=== PATIENT | female | born 1975 | race Caucasian/White ===

== ENCOUNTER 2016-10-01 21:28 | Emergency (ER) | payer MEDICARE, OTHER ==
[~2016-10-01] VITALS: Ht 170.2 cm; Wt 43.2 kg
[~2016-10-01 21:28] MED LIST: BACL10TA PO; CIPR500T4 PO; DIAZ10TA4 PO; FLUO20CA38 PO; LEVO200T6 PO; PHEN-537 PO; PHEN100C PO; TOPI100T42 PO
[2016-10-01 22:23] VITALS: Ht 170.2 cm; Wt 43.2 kg
--- NOTE | 2016-10-02 00:30 | ERD ---
ER Documentation Chief Complaint Date/Time DATE: 10/02/16 TIME: 00:29 Chief Complaint BILATERAL BACK PAIN,BUMP ON BACK OF LEFT LEG, ANKLE PAIN PT DENIES FALLING. HPI This is a 5-year-old female presents to the emergency room for evaluation of alcohol intoxication. The patient states that she was out with some friends and stated that she wanted to get dropped off in the emergency room because she did not want to be around a specific person. She denies any homicidal or suicidal ideation. Patient did state that she had back pain on arrival however she is denying any back pain or any pain at this time to me ROS All systems reviewed and are negative except as per history of present illness. Medications Home Meds Active Scripts Phenazopyridine Hcl* (Pyridium*) 100 Mg Tab, 100 MG PO TID Y for DYSURIA, #8 TAB Prov:RAFAEL CANTRELL DO 09/06/15 Ciprofloxacin Hcl* (Ciprofloxacin Hcl*) 500 Mg Tablet, 500 MG PO BID for 3 Days , TAB Prov:RAFAEL CANTRELL DO 09/06/15 Reported Medications Fluoxetine Hcl* (Prozac*) 20 Mg Capsule, 60 MG PO DAILY, CAP 11/12/14 Topiramate* (Topamax*) 100 Mg Tablet, 100 MG PO BID, TAB 11/12/14 Levothyroxine Sodium* (Levothyroxine Sodium*) 200 Mcg Tablet, 200 MCG PO AC BREAKFAST, TAB 11/12/14 Phenytoin* Sodium Extended (Dilantin*) 100 Mg Capsule, 100 PO BID, CAP 2 tab bid 11/12/14 Diazepam* (Diazepam*) 10 Mg Tablet, 10 MG PO BID, TAB 11/12/14 Baclofen* (Baclofen*) 10 Mg Tablet, 10 MG PO TID, TAB 08/23/14 Allergies Allergies: Coded Allergies: Sulfa (Sulfonamide Antibiotics) (Verified Allergy, Unknown, 08/23/14) erythromycin base (Verified Allergy, Unknown, UNKNOWN, 08/23/14) pineapple (Verified Allergy, Unknown, 08/06/14) PMhx/Soc History of Surgery: Yes (BILAT BUNION FT) Anesthesia Reaction: No Hx Neurological Disorder: Yes (epilepsy) Hx Respiratory Disorders: No Hx Cardiac Disorders: No Hx Psychiatric Problems: Yes (depression/anxiety, alcohol abuse) Hx Miscellaneous Medical Probl: Yes (hypothyroidism, back pain) Hx Alcohol Use: Yes (alcohol every day) Hx Substance Use: No Hx Tobacco Use: No Smoking Status: Unknown if ever smoked Physical Exam Vitals Vital Signs Date Time Temp Pulse Resp B/P Pulse Ox O2 Delivery O2 Flow Rate FiO2 10/01/16 22:23 99.0 100 19 105/73 98 Physical Exam Const: No acute distress, smells of alcohol Head: Atraumatic Eyes: Normal Conjunctiva ENT: Normal External Ears, Nose and Mouth. Neck: Full range of motion..~ No meningismus. Resp: Clear to auscultation bilaterally Cardio: Regular rate and rhythm, no murmurs Abd: Soft, non tender, non distended. Normal bowel sounds Skin: No petechiae or rashes Back: No midline or flank tenderness Ext: No cyanosis, or edema Neur: Awake and alert Psych: Normal Mood and Affect Procedures/MDM This 41-year-old female presents to the ER for evaluation of alcohol intoxication. This patient is not homicidal not suicidal and will be discharged home when she is clinically sober. Departure Diagnosis: Primary Impression: Alcohol abuse Condition: Stable RAFAEL CANTRELL DO Oct 02, 2016 00:30
[2016-10-02 05:00] VITALS: BP 123/73; PULSE 89; RESP 22; TEMP 98
== END 2016-10-02 10:32 | disposition home or self-care (01) ==
LOC: E/R 21:28
DX: F10.10 Alcohol abuse, uncomplicated (principal); R40.2242 Coma scale, best verbal response, confused conversation, at arrival to emergency department; E03.9 Hypothyroidism, unspecified; R40.2142 Coma scale, eyes open, spontaneous, at arrival to emergency department; R40.2362 Coma scale, best motor response, obeys commands, at arrival to emergency department
CPT/HCPCS: 99282

== ENCOUNTER 2017-03-22 12:56 | Emergency (ER) | payer MEDICARE, OTHER ==
[~2017-03-22] VITALS: Wt 50.6 kg
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
[2017-03-22] MEDS ORDERED: HYDROCODONE/APAP (5/325) TAB PO ONE (14:30)
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
[2017-03-22 16:00] VITALS: BP 112/62; PULSE 70; RESP 20; TEMP 98
[2017-03-22] MEDS ORDERED: HYDR-906 PO (16:53)
== END 2017-03-22 17:10 | disposition home or self-care (01) ==
LOC: FTE 12:56
DX: S00.81XA Abrasion of other part of head, initial encounter (principal); E03.9 Hypothyroidism, unspecified; Y04.8XXA Assault by other bodily force, initial encounter
CPT/HCPCS: 80306; 99283